=== PATIENT | male | born 1985 | race African-American/Black ===

== ENCOUNTER 2016-11-30 06:15 | Emergency (ER) | payer OTHER ==
[2016-11-30 06:39] VITALS: BP 113/75
== END 2016-11-30 06:39 | disposition home or self-care (01) ==
LOC: ED 06:15
DX: K52.9 Noninfective gastroenteritis and colitis, unspecified (principal)
CPT/HCPCS: Q0162

== ENCOUNTER 2017-12-11 12:33 | Inpatient (IN) | payer OTHER ==
[~2017-12-11] VITALS: Ht 172.7 cm; Wt 90.0 kg
[2017-12-11 12:41] VITALS: Ht 172.7 cm; Wt 90.0 kg
[2017-12-11 13:22] LABS: CALCIUM 9.1 mg/dL (8.5-10.1); CARBON DIOXIDE 31.1 mmol/L (21-32); CHLORIDE SERUM 103 mmol/L (98-107); CREATININE SERUM 1.1 mg/dL (0.7-1.3); GFR1 > 60 mL/min; GLUCOSE SERUM 74 mg/dL (74-106); POTASSIUM SERUM 3.8 mmol/L (3.5-5.1); SODIUM SERUM 139 mmol/L (136-145)
[2017-12-11 13:30] LABS: BASOPHIL % 0.4 % (0-2); PLATELET COUNT 164 x10^3mcL (130-400); RED CELL DISTRIBUTION WIDTH 13.5 % (11.5-14.5)
[2017-12-11 14:52] LABS: MAGNESIUM 2.1 mg/dL (1.8-2.4); PHOSPHOROUS 3.1 mg/dL (2.5-4.9)
[2017-12-11 15:10] LABS: T3 TOTAL 1.01 ng/mL
[2017-12-11 15:14] LABS: FREE T4 0.79 ng/dL (0.76-1.46); FREE THYROXINE INDEX 1.9 ug/dL (1.4-4.5); T4(THYROXINE) 5.4 ug/dL (4.7-13.3)
[2017-12-11 16:06] VITALS: BP 104/74
[2017-12-11 16:26] VITALS: BP 104/74
[2017-12-11 17:26] VITALS: BP 104/74
== END 2017-12-11 18:44 | disposition home or self-care (01) | DRG 203 ==
LOC: ED 12:33 → DU 13:57
PROVIDERS: Emergency Medicine; Family Medicine
DX: R07.89 Other chest pain (principal); F41.9 Anxiety disorder, unspecified; J45.909 Unspecified asthma, uncomplicated
CPT/HCPCS: 84439; J1885; J7030; Q0092

== ENCOUNTER 2018-06-30 02:58 | Emergency (ER) | payer OTHER ==
[~2018-06-30] VITALS: Ht 175.3 cm; Wt 94.8 kg
[2018-06-30 03:10] VITALS: BP 127/97; Ht 175.3 cm; Wt 94.8 kg
== END 2018-06-30 03:28 | disposition home or self-care (01) ==
LOC: ED 02:58
DX: J45.901 Unspecified asthma with (acute) exacerbation (principal); Z76.0 Encounter for issue of repeat prescription

== ENCOUNTER 2020-01-30 11:17 | Emergency (ER) | payer OTHER ==
[~2020-01-30] VITALS: Ht 175.3 cm; Wt 99.8 kg
[2020-01-30 11:38] VITALS: Ht 175.3 cm; Wt 99.8 kg
[2020-01-30 13:49] VITALS: BP 119/59
== END 2020-01-30 13:49 | disposition home or self-care (01) ==
LOC: ED 11:17
DX: J45.901 Unspecified asthma with (acute) exacerbation (principal)
CPT/HCPCS: Q0092

== ENCOUNTER 2020-02-06 12:54 | Emergency (ER) | payer OTHER ==
[~2020-02-06] VITALS: Ht 175.3 cm; Wt 99.8 kg
[2020-02-06 13:07] VITALS: Ht 175.3 cm; Wt 99.8 kg
[2020-02-06 15:49] VITALS: BP 113/44
== END 2020-02-06 15:49 | disposition home or self-care (01) ==
LOC: ED 12:54
DX: J45.901 Unspecified asthma with (acute) exacerbation (principal); K21.9 Gastro-esophageal reflux disease without esophagitis; Z98.890 Other specified postprocedural states

== ENCOUNTER 2020-05-08 20:11 | Emergency (ER) | payer OTHER ==
[~2020-05-08] VITALS: Ht 175.3 cm; Wt 97.1 kg
[2020-05-08 20:21] VITALS: Ht 175.3 cm; Wt 97.1 kg
[2020-05-08 21:01] VITALS: BP 144/97
== END 2020-05-08 21:01 | disposition home or self-care (01) ==
LOC: ED 20:11
DX: J45.901 Unspecified asthma with (acute) exacerbation (principal)

== ENCOUNTER 2020-06-07 07:19 | Emergency (ER) | payer OTHER ==
[~2020-06-07] VITALS: Ht 175.3 cm; Wt 105.2 kg
[2020-06-07 07:38] VITALS: Ht 175.3 cm; Wt 105.2 kg
[2020-06-07] MEDS ORDERED: PROAIR HFA8.5 GM INH (08:38)
[2020-06-07] MEDS ORDERED: ADVAIR HFA 115/1 AER IH (08:38)
[2020-06-07] MEDS ORDERED: CLARITIN10 MG PO (08:38)
[2020-06-07 08:53] VITALS: BP 123/89
== END 2020-06-07 08:53 | disposition home or self-care (01) ==
LOC: ED 07:19
DX: J45.901 Unspecified asthma with (acute) exacerbation (principal); Z76.0 Encounter for issue of repeat prescription